=== PATIENT | male | born 1950 | race Caucasian/White ===

== ENCOUNTER 2021-03-06 22:27 | Inpatient (IN) | payer MEDICARE, BC ==
[~2021-03-06] VITALS: Ht 180.3 cm; Wt 106.6 kg
[~2021-03-06 22:27] MED LIST: BACTRIM DS TAB1 EACH PO
[2021-03-06 22:48] LABS: HEMOGLOBIN 12.6 gm/dl (14.0-17.5); RED BLOOD COUNT 3.85 M/UL (4.20-5.50)
[2021-03-06 23:08] LABS: BUN/CREATININE RATIO 19 (0-10)
[2021-03-07] MEDS ORDERED: BUPROPION HCL150 M1 PO (02:13)
[2021-03-07] MEDS ORDERED: IBU800 MG PO (02:14)
[2021-03-07] MEDS ORDERED: METFORMIN HCL500 M2 PO (02:14)
[2021-03-07] MEDS ORDERED: DOXYCYCLINE MO100 MG PO (02:15)
[2021-03-07] MEDS ORDERED: NORVASC10 MG PO (02:15)
[2021-03-07] MEDS ORDERED: GABAPENTIN100 MG PO (02:15)
[2021-03-07] MEDS ORDERED: LIPITOR TAB 1010 MG PO (02:16)
[2021-03-07] MEDS ORDERED: PIOGLITAZONE HC15 MG PO (02:16)
[2021-03-07] MEDS ORDERED: MYRBETRIQ50 MG PO (02:16)
[2021-03-07] MEDS ORDERED: VICTOZA 3-0.6 MG/0.1 SQ (02:17)
[2021-03-07] MEDS ORDERED: TRESIBA FL100 UNIT/1 SQ (02:17)
[2021-03-07] MEDS ORDERED: TESTOSTERONE75 G1 TOP (02:19)
[2021-03-07 08:05] LABS: HEMOGLOBIN 12.6 gm/dl (14.0-17.5); RED BLOOD COUNT 4.04 M/UL (4.20-5.50); WHITE BLOOD COUNT 23.5 K/UL (4.5-11.0)
[2021-03-07 08:25] LABS: BUN/CREATININE RATIO 15 (0-10)
[2021-03-07 17:17] LABS: ACINETOBACTER BAUMANNII Not Detected (Negative); CANDIDA ALBICANS Not Detected (Negative); CANDIDA KRUSEI Not Detected (Negative); CANDIDA TROPICALIS Not Detected (Negative); ENTEROCOCCUS Not Detected (Negative); ESCHERICHIA COLI Not Detected (Negative); HAEMOPHILUS INFLUENZAE Not Detected (Negative); KLEBSIELLA OXYTOCA Not Detected (Negative); KLEBSIELLA PNEUMONIAE Not Detected (Negative); KPC-CARBAPENEM-RESISTANCE GENE Not Detected (Negative); PROTEUS Not Detected (Negative); PSEUDOMONAS AERUGINOSA Not Detected (Negative); SERRATIA MARCESANS Not Detected (Negative); STAPHYLOCOCCUS Not Detected (Negative); STAPHYLOCOCCUS AUREUS Not Detected (Negative); STREP AGALACTIAE (GROUP B) Not Detected (Negative); STREP PYOGENES (GROUP A) Not Detected (Negative); mecA (METHICILLIN RESIST GENE Not Detected (Negative); vanA/B (VANCOMYCIN RESIST GENE Not Detected (Negative)
[2021-03-07 18:40] LABS: STREPTOCOCCUS DETECTED (Negative)
[2021-03-08 04:35] LABS: HEMOGLOBIN 11.7 gm/dl (14.0-17.5); RED BLOOD COUNT 3.66 M/UL (4.20-5.50); WHITE BLOOD COUNT 19.4 K/UL (4.5-11.0)
[2021-03-08 05:14] LABS: BUN/CREATININE RATIO 12 (0-10)
--- NOTE | 2021-03-08 12:39 | NUR ---
INSTRUCTED PATIENT AND ON ANTIBIOTIC USE AND SIGNS AND SYMPTOMS. VERBALIZED UNDERSTANDING. TERRELL DEVI R.N.
[2021-03-09 04:42] LABS: BUN/CREATININE RATIO 13 (0-10)
[2021-03-09 04:47] LABS: HEMOGLOBIN 12.3 gm/dl (14.0-17.5); RED BLOOD COUNT 3.93 M/UL (4.20-5.50)
[2021-03-09 04:48] LABS: WHITE BLOOD COUNT 14.4 K/UL (4.5-11.0)
[2021-03-10 04:18] LABS: HEMOGLOBIN 12.3 gm/dl (14.0-17.5); RED BLOOD COUNT 3.81 M/UL (4.20-5.50); WHITE BLOOD COUNT 12.4 K/UL (4.5-11.0)
[2021-03-10 04:32] LABS: BUN/CREATININE RATIO 15 (0-10)
[2021-03-11 06:57] LABS: WHITE BLOOD COUNT 11.6 K/UL (4.5-11.0)
[2021-03-11 07:17] LABS: BUN/CREATININE RATIO 11 (0-10)
[2021-03-12 04:02] LABS: HEMOGLOBIN 12.7 gm/dl (14.0-17.5); RED BLOOD COUNT 3.93 M/UL (4.20-5.50); WHITE BLOOD COUNT 12.8 K/UL (4.5-11.0)
[2021-03-12 04:44] LABS: BUN/CREATININE RATIO 10 (0-10)
[2021-03-13 05:15] LABS: HEMOGLOBIN 13.2 gm/dl (14.0-17.5); RED BLOOD COUNT 4.05 M/UL (4.20-5.50); WHITE BLOOD COUNT 13.3 K/UL (4.5-11.0)
[2021-03-13 05:35] LABS: BUN/CREATININE RATIO 13 (0-10)
[2021-03-14 03:27] LABS: BUN/CREATININE RATIO 15 (0-10)
[2021-03-16 04:25] LABS: HEMOGLOBIN 12.3 gm/dl (14.0-17.5); RED BLOOD COUNT 3.8 M/UL (4.20-5.50); WHITE BLOOD COUNT 14.2 K/UL (4.5-11.0)
[2021-03-16 04:49] LABS: BUN/CREATININE RATIO 14 (0-10)
[2021-03-16] MEDS ORDERED: LEVOFLOXACIN500 MG PO (09:44)
== END 2021-03-16 12:21 | disposition home or self-care (01) | DRG 871 ==
LOC: ER1 22:27 → MED SURG 4 03-07 01:05 → CDU 03-07 01:05 → MED SURG 4 03-07 04:20
PROVIDERS: Family Medicine; Internal Medicine; ADMIT Internal Medicine
DX: A40.8 Other streptococcal sepsis (principal); G93.41 Metabolic encephalopathy; K65.0 Generalized (acute) peritonitis; E78.5 Hyperlipidemia, unspecified; I10 Essential (primary) hypertension; E11.9 Type 2 diabetes mellitus without complications; N32.81 Overactive bladder; R53.1 Weakness; N41.9 Inflammatory disease of prostate, unspecified; Z20.822 Contact with and (suspected) exposure to COVID-19; N40.0 Benign prostatic hyperplasia without lower urinary tract symptoms; Z83.3 Family history of diabetes mellitus; Z90.49 Acquired absence of other specified parts of digestive tract; Z79.4 Long term (current) use of insulin; Z80.9 Family history of malignant neoplasm, unspecified; Z82.49 Family history of ischemic heart disease and other diseases of the circulatory system; Z87.891 Personal history of nicotine dependence; Z88.0 Allergy status to penicillin
CPT/HCPCS: 0240U; 36415; 71045; 71260; 76857; 80048; 80053; 80202; 81001; 82962; 83605; 83880; 84100; 84484; 85025; 85610; 85730; 86140; 87040; 87077; 87086; 87150; 87186; 93005; 96365; 99285; J1650; J1956; J2185; J2543; J3370; J7030; J7050; J7070; Q9967

== ENCOUNTER → 2021-03-21 | Outpatient (CLI) | payer MEDICARE, BC ==
[~2021-03-21] MED LIST changes: +BUPROPION HCL150 M1 PO; +DOXYCYCLINE MO100 MG PO; +GABAPENTIN100 MG PO; +IBU800 MG PO; +LEVOFLOXACIN500 MG PO; +LIPITOR TAB 1010 MG PO; +METFORMIN HCL500 M2 PO; +MYRBETRIQ50 MG PO; +NORVASC10 MG PO; +PIOGLITAZONE HC15 MG PO; +TESTOSTERONE75 G1 TOP; +TRESIBA FL100 UNIT/1 SQ; +VICTOZA 3-0.6 MG/0.1 SQ
[2021-03-21 09:46] LABS: WHITE BLOOD COUNT 9.3 K/UL (4.5-11.0)
== END ==
LOC: LAB 09:25
PROVIDERS: Internal Medicine
DX: D72.829 Elevated white blood cell count, unspecified (principal)
CPT/HCPCS: 36415; 85025

== ENCOUNTER 2021-06-23 16:46 | Inpatient (IN) | payer MEDICARE, BC ==
[~2021-06-23] VITALS: Ht 177.8 cm; Wt 76.0 kg
[2021-06-23 17:11] LABS: HEMOGLOBIN 14.1 gm/dl (14.0-17.5); RED BLOOD COUNT 4.27 M/UL (4.20-5.50); WHITE BLOOD COUNT 7.8 K/UL (4.5-11.0)
[2021-06-23 17:39] LABS: BUN/CREATININE RATIO 28 (0-10)
[2021-06-24 04:25] LABS: HEMOGLOBIN 14.3 gm/dl (14.0-17.5); RED BLOOD COUNT 4.35 M/UL (4.20-5.50)
[2021-06-24 04:34] LABS: BUN/CREATININE RATIO 27 (0-10)
--- NOTE | 2021-06-24 19:00 | NUR ---
Patient currently on Airvow at 100%. Tele called that patient's O2 40%. WEnt to patient's room, patient had removed airvow from nose.
--- NOTE | 2021-06-24 19:30 | NUR ---
Patient continuously keeps removing 02 from nose, patient seems more confused, had urinated on himself. Patient baseline is Alert/Oriented, uses the urinal to void. MD notified. New orders for Ativan 2mg Q2 hours prn. Placed patient on bipap at this time because pt was not maintaining appropriate oxygen levels on airvow. TM
--- NOTE | 2021-06-24 19:40 | NUR ---
Ativan not calming patient or helping aid him in keeping bipap on. Patient respirations still high (50's) after receiving medication to calm him. MD notified. New orders for ABG and patient can be sent to ICU for intubation if needed.
--- NOTE | 2021-06-24 20:30 | NUR ---
Patient requiring higher level of care at this time. Report Called to ICU, plans per MD for possible intubation. Patient transferred now , FAmily updated on patient condition/status and room change. Family informed ICU nurse would contact them when ICU nurse available to do so.
[2021-06-25 03:56] LABS: HEMOGLOBIN 14.1 gm/dl (14.0-17.5); RED BLOOD COUNT 4.29 M/UL (4.20-5.50)
[2021-06-25 04:15] LABS: BUN/CREATININE RATIO 29 (0-10)
[2021-06-26 05:25] LABS: HEMOGLOBIN 14.5 gm/dl (14.0-17.5); RED BLOOD COUNT 4.43 M/UL (4.20-5.50); WHITE BLOOD COUNT 12.3 K/UL (4.5-11.0)
[2021-06-26 09:08] LABS: BUN/CREATININE RATIO 33 (0-10)
[2021-06-27 06:05] LABS: HEMOGLOBIN 14.2 gm/dl (14.0-17.5); RED BLOOD COUNT 4.3 M/UL (4.20-5.50); WHITE BLOOD COUNT 11.8 K/UL (4.5-11.0)
[2021-06-27 06:28] LABS: BUN/CREATININE RATIO 42 (0-10)
[2021-06-28 04:10] LABS: RED BLOOD COUNT 3.99 M/UL (4.20-5.50); WHITE BLOOD COUNT 9.2 K/UL (4.5-11.0)
[2021-06-28 04:21] LABS: BUN/CREATININE RATIO 51 (0-10)
[2021-06-29 05:15] LABS: RED BLOOD COUNT 3.97 M/UL (4.20-5.50)
[2021-06-29 05:19] LABS: WHITE BLOOD COUNT 13.2 K/UL (4.5-11.0)
[2021-06-29 05:51] LABS: BUN/CREATININE RATIO 48 (0-10)
[2021-06-30 05:27] LABS: HEMOGLOBIN 13.6 gm/dl (14.0-17.5); RED BLOOD COUNT 4.13 M/UL (4.20-5.50); WHITE BLOOD COUNT 16.3 K/UL (4.5-11.0)
[2021-06-30 05:54] LABS: BUN/CREATININE RATIO 45 (0-10)
[2021-07-01 05:01] LABS: BUN/CREATININE RATIO 46 (0-10)
[2021-07-02 05:45] LABS: HEMOGLOBIN 13.9 gm/dl (14.0-17.5); RED BLOOD COUNT 4.18 M/UL (4.20-5.50)
[2021-07-02 05:56] LABS: BUN/CREATININE RATIO 44 (0-10)
--- NOTE | 2021-07-02 14:17 | NUR ---
WHILE GIVING PT A BATH HIS HR DROPPED TO 40'S AND O2 DROPPED TO LOW 80'S. PT THAN HAD A 2-3 SECOUND PAUSE ON THE MONITOR. I CONTACED DR. PEREZ AND EXPLAINED THE SITUATION TO HER. I THEN CALLED DR. LEE PER DR. PEREZ AND EXPLAINED THE SITUATION TO HER. DR. LEE SAID TO CALL HER IF THE PATIENT HR DROPS TO 30'S. SHE ALSO STATED SHE WOULD SEE THE PT IN THE MORNING.
[2021-07-03 05:26] LABS: BUN/CREATININE RATIO 49 (0-10)
[2021-07-04 05:16] LABS: HEMOGLOBIN 12.2 gm/dl (14.0-17.5); RED BLOOD COUNT 3.78 M/UL (4.20-5.50); WHITE BLOOD COUNT 15.6 K/UL (4.5-11.0)
[2021-07-04 05:46] LABS: BUN/CREATININE RATIO 50 (0-10)
[2021-07-05 06:07] LABS: HEMOGLOBIN 12.7 gm/dl (14.0-17.5); RED BLOOD COUNT 3.86 M/UL (4.20-5.50); WHITE BLOOD COUNT 18.8 K/UL (4.5-11.0)
[2021-07-05 06:09] LABS: BUN/CREATININE RATIO 52 (0-10)
[2021-07-06 06:17] LABS: BUN/CREATININE RATIO 55 (0-10)
[2021-07-10 05:28] LABS: HEMOGLOBIN 11.6 gm/dl (14.0-17.5); RED BLOOD COUNT 3.68 M/UL (4.20-5.50); WHITE BLOOD COUNT 16.7 K/UL (4.5-11.0)
[2021-07-10 05:31] LABS: BUN/CREATININE RATIO 56 (0-10)
[2021-07-11 05:04] LABS: HEMOGLOBIN 11.9 gm/dl (14.0-17.5); RED BLOOD COUNT 3.7 M/UL (4.20-5.50); WHITE BLOOD COUNT 20.2 K/UL (4.5-11.0)
[2021-07-11 05:28] LABS: BUN/CREATININE RATIO 60 (0-10)
== END 2021-07-11 17:26 | disposition expired | DRG 870 ==
LOC: ER1 16:46 → CCU 19:01 → M/S 19:01 → CDU 19:01 → M/S 06-24 00:55 → CCU 06-24 21:50
PROVIDERS: Internal Medicine; Internal Medicine Pulmonary Disease; Preventive Medicine Occupational Medicine; ADMIT Internal Medicine
PROC: XW033E5 Introduction of Remdesivir Anti-infective into Peripheral Vein, Percutaneous Approach, New Technology Group 5 (ICD-10-PCS; 2021-06-23)
PROC: 3E0333Z Introduction of Anti-inflammatory into Peripheral Vein, Percutaneous Approach (ICD-10-PCS; 2021-06-23)
PROC: 8E0ZXY6 Isolation (ICD-10-PCS; 2021-06-23)
PROC: 5A1955Z Respiratory Ventilation, Greater than 96 Consecutive Hours (ICD-10-PCS; principal; 2021-06-24)
PROC: 0BH17EZ Insertion of Endotracheal Airway into Trachea, Via Natural or Artificial Opening (ICD-10-PCS; 2021-06-24)
PROC: 5A0955A Assistance with Respiratory Ventilation, Greater than 96 Consecutive Hours, High Flow/Velocity Cannula (ICD-10-PCS; 2021-06-24)
PROC: XW13325 Transfusion of Convalescent Plasma (Nonautologous) into Peripheral Vein, Percutaneous Approach, New Technology Group 5 (ICD-10-PCS; 2021-06-24)
PROC: 02HV33Z Insertion of Infusion Device into Superior Vena Cava, Percutaneous Approach (ICD-10-PCS; 2021-07-01)
PROC: 0DH63UZ Insertion of Feeding Device into Stomach, Percutaneous Approach (ICD-10-PCS; 2021-07-03)
DX: A41.89 Other specified sepsis (principal); U07.1 COVID-19; R65.21 Severe sepsis with septic shock; J80 Acute respiratory distress syndrome; J12.82 Pneumonia due to coronavirus disease 2019; J15.9 Unspecified bacterial pneumonia; K56.7 Ileus, unspecified; E87.3 Alkalosis; Z66 Do not resuscitate; Z51.5 Encounter for palliative care; T38.0X5A Adverse effect of glucocorticoids and synthetic analogues, initial encounter; E78.5 Hyperlipidemia, unspecified; I10 Essential (primary) hypertension; E11.65 Type 2 diabetes mellitus with hyperglycemia; D53.9 Nutritional anemia, unspecified; E88.09 Other disorders of plasma-protein metabolism, not elsewhere classified; J98.2 Interstitial emphysema; E87.8 Other disorders of electrolyte and fluid balance, not elsewhere classified; Z88.0 Allergy status to penicillin; Z87.09 Personal history of other diseases of the respiratory system
CPT/HCPCS: 31500; 36415; 36600; 71045; 74018; 80048; 80053; 80202; 82550; 82553; 82728; 82803; 82962; 83036; 83605; 83615; 83690; 83735; 83874; 83880; 84100; 84484; 85025; 85027; 85379; 85384; 85610; 85652; 85730; 86140; 86900; 86901; 86927; 87040; 87070; 87081; 87086; 87205; 93005; 94002; 94003; 94640; 94660; 94664; 94760; 96374; 96375; 99285; A6212; C1751; C9113; J0330; J0456; J0696; J1100; J1120; J1205; J1650; J1940; J2020; J2060; J2185; J2250; J2270; J2704; J3010; J3370; J7030; J7050; J7070; U0002